=== PATIENT | female | born 1960 | race Caucasian/White ===

== ENCOUNTER 2020-02-15 15:45 | Emergency (ER) | payer MEDICARE, OTHER ==
--- NOTE | 2020-02-15 16:28 | ER Document Report ---
ED General - General Chief Complaint: Altered Mental Status Stated Complaint: CONFUSION,AGITATED Time Seen by Provider: 02/15/20 16:22 Notes: Patient is patient is a 59-year-old female presents emergency department with a chief complaint of dysuria and confusion. Patient states that she is alert and oriented, but states that sometimes she feels not quite right. Patient has been out of her Protonix and ended up taking [id number] Nexium. The Nexium made her constipated and today she took some Colace, which may let her have a bowel movement. Patient has a history of GERD. Denies any fever, body aches, or chills. Patient also reports that she has an abscess to her right thigh and right axillary area. She took her daughter's Keflex. She was taking 1 500 mg tablet for 5 days. - Related Data Allergies/Adverse Reactions: No Known Allergies Allergy (Unverified 02/15/20 16:06) Past Medical History - General Information source: Patient - Social History Smoking Status: Current Every Day Smoker Chew tobacco use (# tins/day): No Frequency of alcohol use: None Drug Abuse: None Family History: Reviewed & Not Pertinent Review of Systems - Review of Systems Notes: REVIEW OF SYSTEMS: CONSTITUTIONAL : Denies recent illness. Denies recent unintentional weight loss. Denies fever, chills, or sweats. EENT: Denies eye, ear, throat, or mouth pain, discharge, or symptoms. Denies nasal or sinus congestion. CARDIOVASCULAR: Denies chest pain. RESPIRATORY: Denies shortness of breath, cough, congestion, difficulty breathing, or wheezing. GASTROINTESTINAL: Denies nausea, vomiting, and diarrhea. Denies abdominal pain. Denies constipation. GENITOURINARY: See HPI. MUSCULOSKELETAL: Denies neck and back pain. Denies joint pain or swelling. SKIN: Denies rash, itchiness, or lesions HEMATOLOGIC : Denies easy bruising or bleeding. LYMPHATIC: Denies swollen, painful, enlarged glands. NEUROLOGICAL: See HPI. PSYCHIATRIC: Denies stress, anxiety, alteration in sleep patterns, or depression. All other systems reviewed and negative. Physical Exam - Vital signs Vitals: Temp Pulse Resp BP Pulse Ox 98.4 F 72 18 158/84 H 98 02/15/20 15:56 02/15/20 15:56 02/15/20 15:56 02/15/20 15:56 02/15/20 15:56 - Notes Notes: PHYSICAL EXAMINATION: GENERAL: Appears well, healthy, well-nourished, no acute distress. HEAD: Normocephalic, atraumatic. EYES: PERRL, conjunctiva normal, all extraocular movements intact, sclera nonicteric ENT: Moist mucous membranes. NECK: Supple, no noticeable swelling, redness, rash. Normal range of motion. LUNGS: Equal breath sounds bilaterally and clear to auscultation. No wheezes rales or rhonchi. CARDIOVASCULAR: S1-S2, regular rate, regular rhythm. Radial pulses 2+, normal. ABDOMEN: Normoactive bowel sounds. Soft, slightly tender mid lower abdomen, no guarding, no rebound tenderness, and no masses palpated. EXTREMITIES: Normal strength and range of motion, no pitting or edema. No cyanosis. NEUROLOGICAL: Moves all extremities upon command. Strength 5/5 in all extremities. PSYCH: Normal mood, normal affect. SKIN: Warm, dry. No rash, lesions, ulcerations noted. Normal skin turgor. Course - Re-evaluation Re-evalutation: 02/15/20 18:50 Patient states that she feels better after receiving a liter of fluids. Hematology shows a hemoglobin of 10.3 and hematocrit of 31. I have no other labs to compare this to. Chemistry shows a potassium of 3.5, which will give her 20 Kavon use of potassium. Her CO2 is 37. Patient reports that she used to wear oxygen, but was able to be taken off of it. She was recommended for sleep study when she lived in [place], but she never went to go get the sleep study done. Advised her to get the sleep study done by her primary care provider. Patient also has trace leukocytes in her urine. Since she is taking the Keflex, her leukocytes most likely improved. We will start the patient on Bactrim. I&D of right axilla area performed. See procedure note. Follow-up precautions were given. Verbal discharge instructions were given to the patient. They verbalized understanding. They are stable for discharge. - Vital Signs Vital signs: Temp Pulse Resp BP Pulse Ox 98.3 F 69 16 175/80 H 98 02/15/20 19:31 02/15/20 19:31 02/15/20 19:31 02/15/20 19:31 02/15/20 19:31 - Laboratory Result Diagrams: 02/15/20 17:30 02/15/20 17:30 Laboratory results interpreted by me: 02/15/20 02/15/20 02/15/20 15:55 17:30 17:30 Hgb 10.3 L Hct 31.0 L MCV 73 L MCH 24.1 L RDW 15.8 H Plt Count 137 L Potassium 3.5 L Chloride 96 L Carbon Dioxide 37 H Leukocyte Esterase Rfl TRACE H Procedures - Incision and Drainage Right axilla Type: Simple Incision Method: Incision made with needle Amount/type of drainage: 0.5 mL/purulent Discharge - Discharge Clinical Impression: Urinary tract infection Qualifiers: Urinary tract infection type: acute cystitis Hematuria presence: without hematuria Qualified Code(s): N30.00 - Acute cystitis without hematuria Condition: Stable Disposition: HOME, SELF-CARE Instructions: Trimethoprim-Sulfa ([facility]), Urinary Tract Infection ([facility]) Additional Instructions: Your urine shows findings consistent with a urinary tract infection. Please take all the antibiotics as directed even if your symptoms have improved. Please follow-up with your primary care physician as needed. Return to emergency room if you develop fever >101F, persistent vomiting, become lethargic, have severe pain in your sides, or any other symptoms that are concerning to you. You also had an abscess that was drained here in the emergency department. Take your antibiotics as prescribed. Follow-up with a regular doctor this week. See if you can get a sleep study, as discussed. Prescriptions: Sulfamethoxazole/Trimethoprim [Bactrim Ds Tablet] 1 each PO BID 7 Days #14 tablet Fluconazole [Diflucan 100 Mg Tablet] 100 mg PO ASDIR PRN #2 tablet PRN Reason: Promethazine HCl [Phenergan 25 mg Tablet] 25 mg PO Q6HP PRN #6 tablet PRN Reason: Pantoprazole Sodium [Protonix [address] Tablet] 40 mg PO QAM #30 tablet. Tramadol HCl 100 mg PO BID #6 tablet
[2020-02-15] MEDS ORDERED: NORMAL SALINE 1000 ML 1,000 ML IV ONE (16:39)
[2020-02-15 17:35] LABS: APPEARANCE,URINE CLEAR; BILIRUBIN,URINE NEGATIVE (NEGATIVE); COLOR,URINE STRAW; GLUCOSE, URINE NEGATIVE (NEGATIVE); KETONES,URINE NEGATIVE (NEGATIVE); PROTEIN,URINE NEGATIVE (NEGATIVE); URINE SPECIFIC GRAVITY 1.003; UROBILINOGEN,URINE NEGATIVE mg/dL (<2.0)
[2020-02-15 17:48] LABS: ABSOLUTE BASOPHILS # (AUTO) 0.1 10^3/uL (0.0-0.2); ABSOLUTE EOSINOPHILS # (AUTO) 0.1 10^3/uL (0.0-0.6); ABSOLUTE LYMPHOCYTES (AUTO) 1.2 10^3/uL (0.5-4.7); ABSOLUTE MONOCYTES (AUTO) 0.3 10^3/uL (0.1-1.4); ABSOLUTE NEUT (AUTO) 3.1 10^3/uL (1.7-8.2); BASOPHILS % (AUTO) 1.5 % (0-2); EOSINOPHILS % (AUTO) 2.6 % (0-6); HEMOGLOBIN 10.3 g/dL (12.0-15.5); LYMPHOCYTES % (AUTO) 25.1 % (13-45); MEAN CORPUSCULAR HEMOGLOBIN 24.1 pg (27.0-33.4); MEAN CORPUSCULAR HGB CONC 33.1 g/dL (32.0-36.0); MEAN CORPUSCULAR VOLUME 73 fl (80-97); MONOCYTES % (AUTO) 5.7 % (3-13); RED BLOOD COUNT 4.27 10^6/uL (3.72-5.28); RED CELL DISTRIBUTION WIDTH 15.8 % (11.5-14.0); SEGMENTED NEUTROPHILS % (AUTO) 65.1 % (42-78); TOTAL CELLS COUNTED % (AUTO) 100 %; WHITE BLOOD COUNT 4.8 10^3/uL (4.0-10.5)
[2020-02-15 18:04] LABS: ALBUMIN 3.8 g/dL (3.5-5.0); ALKALINE PHOSPHATASE 64 U/L (38-126); ANION GAP 7 (5-19); ASPARTATE AMINO TRANSFERASE 29 U/L (14-36); BILIRUBIN,DIRECT 0.2 mg/dL (0.0-0.4); BILIRUBIN,TOTAL 1.3 mg/dL (0.2-1.3); BLOOD UREA NITROGEN 9 mg/dL (7-20); CALCIUM 9.1 mg/dL (8.4-10.2); CARBON DIOXIDE 37 mmol/L (22-30); CHLORIDE 96 mmol/L (98-107); GLUCOSE 96 mg/dL (75-110); POTASSIUM 3.5 mmol/L (3.6-5.0); TOTAL PROTEIN 6.4 g/dL (6.3-8.2)
[2020-02-15 18:07] LABS: PLATELET COUNT 137 10^3/uL (150-450)
[2020-02-15] MEDS ORDERED: POTASSIUM CHLORIDE 10 MEQ TABLET.ER PO ONE (18:49)
[2020-02-15 19:31] VITALS: BP 175/80
== END 2020-02-15 19:38 | disposition home or self-care (01) ==
LOC: ER 15:45
DX: N30.00 Acute cystitis without hematuria (principal); L02.415 Cutaneous abscess of right lower limb; L02.411 Cutaneous abscess of right axilla; R41.82 Altered mental status, unspecified; K21.9 Gastro-esophageal reflux disease without esophagitis; F17.200 Nicotine dependence, unspecified, uncomplicated
CPT/HCPCS: 10060; 99284; 96360; 36415; 87086; 87070; 87205; 83690; 85025; 87077; 80053; 81001; 87186; J7030; A9270